=== PATIENT | female | born 1960 | race African-American/Black ===

== ENCOUNTER 2017-05-30 12:01 | Emergency (ER) | payer BC ==
[~2017-05-30] VITALS: Ht 167.6 cm; Wt 68.0 kg
[~2017-05-30 12:01] MED LIST: CHOL100046 PO; MECL25TA3 PO; OMEP20CA4 PO; ROSU10TA PO; VERA180C2 PO
[2017-05-30 12:10] VITALS: BP 129/63
== END 2017-05-30 19:57 | disposition left against medical advice (07) ==
LOC: ER 13:37
DX: R42 Dizziness and giddiness (principal); R06.02 Shortness of breath; I10 Essential (primary) hypertension; E78.00 Pure hypercholesterolemia, unspecified; F17.210 Nicotine dependence, cigarettes, uncomplicated; Z88.5 Allergy status to narcotic agent; Z53.21 Procedure and treatment not carried out due to patient leaving prior to being seen by health care provider

== ENCOUNTER 2017-07-18 11:25 | Emergency (ER) | payer BC ==
[~2017-07-18] VITALS: Ht 167.6 cm; Wt 68.0 kg
[2017-07-18] MEDS ORDERED: FAMOTIDINE 20MG/2ML VIAL IV STA (12:17)
[2017-07-18] MEDS ORDERED: ONDANSETRON HCL 4MG/2ML VIAL IV STA (12:17)
[2017-07-18] MEDS ORDERED: SODIUM CHLORIDE 0.9% 1,000 ML IV ONE (12:17)
[2017-07-18 12:51] LABS: BASOPHILS % 0.2 % (0.0-2.0); EOSINOPHILS % 1.1 % (0.0-5.0); HEMATOCRIT. 45.5 % (36.0-48.0); HEMOGLOBIN. 15.6 g/dL (12.0-16.0); MEAN CORPUSCULAR HEMOGLOBIN 30.6 pg (28.0-32.0); MEAN CORPUSCULAR VOLUME 89.3 fL (81.0-99.0); MEAN PLATELET VOLUME 9.3 fl (7.4-10.4); MONOCYTES % 8.6 % (2.0-8.0); NEUTROPHILS % 44.1 % (40.0-76.0); PLATELET 291 x1000/uL (130-400)
[2017-07-18 12:56] LABS: PARTIAL THROMBOPLASTIN TIME 29.2 sec (23.4-31.0); PROTHROMBIN TIME 10.7 sec (9.4-11.6)
[2017-07-18 13:00] LABS: CARBON DIOXIDE 28 mEq/L (21-32); CHLORIDE 108 mEq/L (98-107)
[2017-07-18 13:03] LABS: CLARITY URINE CLEAR (CLEAR); COLOR URINE YELLOW (YELLOW); GLUCOSE URINE NEGATIVE (NEGATIVE); KETONES URINE NEGATIVE (NEGATIVE); LEUKOCYTE ESTERASE URINE NEGATIVE (NEGATIVE); NITRITE URINE NEGATIVE (NEGATIVE); OCCULT BLOOD URINE NEGATIVE (NEGATIVE); PH URINE 6.5 (4.5-8.0); PROTEIN URINE NEGATIVE (NEGATIVE); SPECIFIC GRAVITY URINE 1.007 (1.005-1.030); UROBILINOGEN URINE 0.2 E.U./dL (0.2-1.0)
[2017-07-18 13:05] LABS: CREATINE KINASE 56 IU/L (26-192); CREATINE KINASE MB FRACTION < 0.5 ng/mL (0.5-3.6); TROPONIN I < 0.02 ng/mL (0.00-0.04)
[2017-07-18 14:41] VITALS: BP 140/58
== END 2017-07-18 14:43 | disposition home or self-care (01) ==
LOC: ER 12:25
DX: R10.12 Left upper quadrant pain (principal); I10 Essential (primary) hypertension; R11.0 Nausea; E87.8 Other disorders of electrolyte and fluid balance, not elsewhere classified; E78.00 Pure hypercholesterolemia, unspecified; F17.210 Nicotine dependence, cigarettes, uncomplicated; Z87.19 Personal history of other diseases of the digestive system
CPT/HCPCS: 36415; 74010; 80053; 81003; 82550; 82553; 83690; 84484; 85025; 85610; 85730; 93005; 96361; 96374; 96375; 99285; J2405; J3490; J7030; Z7610

== ENCOUNTER 2017-11-29 15:34 | Emergency (ER) | payer BC ==
[~2017-11-29] VITALS: Ht 170.2 cm; Wt 67.0 kg
[2017-11-29] MEDS ORDERED: ONDANSETRON 4MG ODT PO STA (18:12)
[2017-11-29] MEDS ORDERED: TRAMADOL 50MG TABLET PO ONE (18:15)
[2017-11-29 19:44] LABS: BASOPHILS % 0.6 % (0.0-2.0); EOSINOPHILS % 1.3 % (0.0-5.0); HEMATOCRIT. 44.1 % (36.0-48.0); MEAN CORPUSCULAR HEMOGLOBIN 31.2 pg (28.0-32.0); MEAN CORPUSCULAR VOLUME 91.7 fL (81.0-99.0); MEAN PLATELET VOLUME 9.9 fl (7.4-10.4); MONOCYTES % 6.9 % (2.0-8.0); NEUTROPHILS % 36.2 % (40.0-76.0); PLATELET 303 x1000/uL (130-400)
[2017-11-29 19:45] LABS: INR 1.1
[2017-11-29 19:54] LABS: CARBON DIOXIDE 27 mEq/L (21-32); CHLORIDE 105 mEq/L (98-107)
[2017-11-29 21:09] LABS: CLARITY URINE CLEAR (CLEAR); COLOR URINE YELLOW (YELLOW); KETONES URINE NEGATIVE (NEGATIVE); LEUKOCYTE ESTERASE URINE TRACE (NEGATIVE); NITRITE URINE NEGATIVE (NEGATIVE); OCCULT BLOOD URINE NEGATIVE (NEGATIVE); PROTEIN URINE NEGATIVE (NEGATIVE); UROBILINOGEN URINE 0.2 E.U./dL (0.2-1.0)
[2017-11-29 21:15] VITALS: BP 118/56
== END 2017-11-29 21:15 | disposition home or self-care (01) ==
LOC: ER 15:52
DX: R10.13 Epigastric pain (principal); R11.0 Nausea; I10 Essential (primary) hypertension; E78.00 Pure hypercholesterolemia, unspecified; D86.9 Sarcoidosis, unspecified; F17.200 Nicotine dependence, unspecified, uncomplicated; Z88.5 Allergy status to narcotic agent; Z98.890 Other specified postprocedural states; Z87.19 Personal history of other diseases of the digestive system
CPT/HCPCS: 36415; 71045; 76705; 80053; 81001; 83690; 85025; 85610; 99285; Q0162

== ENCOUNTER 2017-12-03 21:45 | Emergency (ER) | payer BC ==
[~2017-12-03] VITALS: Ht 170.2 cm; Wt 67.0 kg
[2017-12-03 21:55] VITALS: BP 144/53
== END 2017-12-04 03:40 | disposition left against medical advice (07) ==
LOC: ER 22:24
DX: R10.9 Unspecified abdominal pain (principal); Z53.21 Procedure and treatment not carried out due to patient leaving prior to being seen by health care provider

== ENCOUNTER 2018-05-29 13:55 | Emergency (ER) | payer BC | END 2018-05-29 16:21 | disposition left against medical advice (07) | LOC: ER 13:55 | DX: R53.1 Weakness (principal); R20.0 Anesthesia of skin; Z53.21 Procedure and treatment not carried out due to patient leaving prior to being seen by health care provider ==

== ENCOUNTER 2020-01-21 20:39 | Emergency (ER) | payer BC ==
[~2020-01-21 20:39] MED LIST changes: +CRES10 PO; -ROSU10TA PO
== END 2020-01-22 03:00 | disposition left against medical advice (07) ==
LOC: ER 20:39
DX: S49.91XA Unspecified injury of right shoulder and upper arm, initial encounter (principal); Z53.21 Procedure and treatment not carried out due to patient leaving prior to being seen by health care provider; X58.XXXA Exposure to other specified factors, initial encounter; Y93.89 Activity, other specified; Y92.89 Other specified places as the place of occurrence of the external cause; Y99.8 Other external cause status

== ENCOUNTER 2020-05-30 15:21 | Emergency (ER) | payer BC ==
[~2020-05-30] VITALS: Ht 170.2 cm; Wt 67.7 kg
[2020-05-30 15:54] VITALS: BP 118/76
[2020-05-30] MEDS ORDERED: ONDANSETRON 4MG ODT PO ONE (20:00)
[2020-05-30] MEDS ORDERED: KETOROLAC 60MG/2ML VIAL IM ONE (20:00)
[2020-05-30 20:32] LABS: BASOPHILS % 0.9 % (0.0-2.0); CHLORIDE 107 mEq/L (98-107); EOSINOPHILS % 0.6 % (0.0-5.0); HEMOGLOBIN. 15.8 g/dL (12.0-16.0); LYMPHOCYTES % 35.6 % (20.0-50.0); MEAN CORPUSCULAR HEMOGLOBIN 31.6 pg (28.0-32.0); MEAN CORPUSCULAR VOLUME 91.9 fL (81.0-99.0); MEAN PLATELET VOLUME 9.3 fl (7.4-10.4); MONOCYTES % 8.6 % (2.0-8.0); NEUTROPHILS % 54.3 % (40.0-76.0); PLATELET 322 x1000/uL (130-400); RED CELL DISTRIBUTION WIDTH 13.8 % (11.6-14.6)
[2020-05-30 20:39] LABS: PROTHROMBIN TIME 10.9 sec (9.6-11.0)
[2020-05-30 21:13] LABS: CLARITY URINE CLOUDY (CLEAR); COLOR URINE YELLOW (YELLOW); KETONES URINE 1+ (NEGATIVE); LEUKOCYTE ESTERASE URINE 1+ (NEGATIVE); NITRITE URINE NEGATIVE (NEGATIVE); OCCULT BLOOD URINE NEGATIVE (NEGATIVE); PROTEIN URINE TRACE (NEGATIVE); SPECIFIC GRAVITY URINE 1.024 (1.005-1.030)
== END 2020-05-30 21:37 | disposition home or self-care (01) ==
LOC: ER 15:21
DX: N39.0 Urinary tract infection, site not specified (principal); E78.00 Pure hypercholesterolemia, unspecified; I10 Essential (primary) hypertension; Z98.890 Other specified postprocedural states
CPT/HCPCS: 36415; 80053; 81003; 83690; 85025; 85610; 96372; 99283; J1885; Q0162

== ENCOUNTER 2020-07-07 11:24 | Inpatient (IN) | payer BC ==
[~2020-07-07] VITALS: Ht 170.2 cm; Wt 62.6 kg
[2020-07-07] MEDS ORDERED: NITROGLYCERIN 0.4MG TABLET SL SL PRN (12:15)
[2020-07-07] MEDS ORDERED: ASPIRIN 81MG TABLET PO ONE (12:15)
[2020-07-07 12:49] LABS: BASOPHILS % 1.3 % (0.0-2.0); EOSINOPHILS % 0.7 % (0.0-5.0); HEMATOCRIT. 44.3 % (36.0-48.0); HEMOGLOBIN. 15.3 g/dL (12.0-16.0); LYMPHOCYTES % 42.4 % (20.0-50.0); MEAN CORPUSCULAR HEMOGLOBIN 31.7 pg (28.0-32.0); MEAN CORPUSCULAR VOLUME 91.7 fL (81.0-99.0); MEAN PLATELET VOLUME 9.2 fl (7.4-10.4); MONOCYTES % 8.6 % (2.0-8.0); PLATELET 302 x1000/uL (130-400); RED BLOOD CELL COUNT 4.83 mill/uL (4.2-5.4); RED CELL DISTRIBUTION WIDTH 14.1 % (11.6-14.6)
[2020-07-07 12:52] LABS: CHLORIDE 108 mEq/L (98-107)
[2020-07-07 13:04] LABS: D-DIMER 0.41 mg/L FEU (<0.50); PARTIAL THROMBOPLASTIN TIME 28.6 sec (23.4-31.0); PROTHROMBIN TIME 10.5 sec (9.6-11.0)
[2020-07-08] VITALS: BP 137/71
[2020-07-08] MEDS: HYDROCODONE/ACETAMINOPHEN 5/325MG TABLET PO PRN ×2 (01:32→12:25)
[2020-07-08 04:00] VITALS: BP 122/53
[2020-07-08 06:21] LABS: BASOPHILS % 0.9 % (0.0-2.0); EOSINOPHILS % 1.5 % (0.0-5.0); HEMOGLOBIN. 14.6 g/dL (12.0-16.0); LYMPHOCYTES % 49.4 % (20.0-50.0); MEAN CORPUSCULAR HEMOGLOBIN 31.2 pg (28.0-32.0); MEAN CORPUSCULAR VOLUME 91.9 fL (81.0-99.0); MEAN PLATELET VOLUME 10.1 fl (7.4-10.4); MONOCYTES % 9.7 % (2.0-8.0); NEUTROPHILS % 38.5 % (40.0-76.0); PLATELET 286 x1000/uL (130-400); RED BLOOD CELL COUNT 4.67 mill/uL (4.2-5.4)
[2020-07-08 06:35] LABS: CHLORIDE 108 mEq/L (98-107)
[2020-07-08] MEDS: PANTOPRAZOLE 40MG DR TABLET PO SCH (06:49)
[2020-07-08 07:03] LABS: CREATINE KINASE 36 IU/L (26-192); HDL CHOLESTEROL 52 mg/dL (40-59)
[2020-07-08 07:04] LABS: LDL CHOLESTEROL 108 mg/dL (5-100)
[2020-07-08 07:09] LABS: CREATINE KINASE MB FRACTION < 1.0 ng/mL (0.5-3.6)
[2020-07-08 08:01] VITALS: BP 121/56
[2020-07-08] MEDS: ENOXAPARIN 40MG/0.4ML SYR SUBCUT SCH (09:20)
[2020-07-08] MEDS: ASPIRIN 81MG TABLET PO SCH (09:20)
[2020-07-08] MEDS: METOPROLOL TARTRATE 50MG TABLET PO SCH ×2 (09:20→21:00)
[2020-07-08 12:00] VITALS: BP 101/50
[2020-07-08] MEDS ORDERED: PNEUMOCOCCAL 23-VAL P-SAC VAC 0.5 ML IM ONE (12:00)
[2020-07-08] MEDS ORDERED: REGADENOSON 0.4 MG/5 ML IV NR (15:30)
[2020-07-08 16:00] VITALS: BP 111/43
[2020-07-08 17:13] LABS: CLARITY URINE CLOUDY (CLEAR); COLOR URINE YELLOW (YELLOW); KETONES URINE TRACE (NEGATIVE); LEUKOCYTE ESTERASE URINE 1+ (NEGATIVE); NITRITE URINE NEGATIVE (NEGATIVE); OCCULT BLOOD URINE NEGATIVE (NEGATIVE); PROTEIN URINE NEGATIVE (NEGATIVE); SPECIFIC GRAVITY URINE 1.022 (1.005-1.030); UROBILINOGEN URINE 0.2 E.U./dL (0.2-1.0)
[2020-07-08 17:31] LABS: *AMPHETAMINES SCREEN URINE NEGATIVE (NEGATIVE); *BARBITURATES SCREEN URINE NEGATIVE (NEGATIVE); *BENZODIAZEPINES SCREEN URINE NEGATIVE (NEGATIVE); *COCAINE SCREEN URINE NEGATIVE (NEGATIVE); METHADONE URINE SCREEN NEGATIVE (NEGATIVE); OPIATES URINE SCREEN PRESUMTIVE POSITIVE (NEGATIVE)
[2020-07-08 17:32] LABS: CANNABINOID URINE SCREEN NEGATIVE (NEGATIVE); PHENCYCLIDINE URINE SCREEN NEGATIVE (NEGATIVE)
[2020-07-08] MEDS ORDERED: ACETAMINOPHEN 325MG TABLET PO PRN (19:00)
[2020-07-08] MEDS ORDERED: ACETAMINOPHEN 650MG SUPP PR PRN (19:00)
[2020-07-08] MEDS ORDERED: BISACODYL 10MG SUPP PR PRN (19:00)
[2020-07-08] MEDS ORDERED: HYDRALAZINE 20MG/ML VIAL IV PRN (19:00)
[2020-07-08] MEDS ORDERED: ONDANSETRON HCL 4MG/2ML INJ IV PRN (19:00)
[2020-07-08] MEDS ORDERED: IPRATROPIUM/ALBUTEROL 0.5-3(2.5)MG/3ML NEB HHN PRN (19:00)
[2020-07-08 20:00] VITALS: BP 107/56
[2020-07-08] MEDS ORDERED: FLUCONAZOLE 200 MG/100ML BAG 100 ML IV SCH (20:00)
[2020-07-08] MEDS ORDERED: LEVOFLOXACIN 500MG PREMIX 100 ML IV SCH (20:00)
[2020-07-08] MEDS ORDERED: LACTULOSE 20G/30ML UDC PO PRN (21:00)
[2020-07-08] MEDS: DEXT 5%/0.45% NACL 1000ML 1,000 ML IV SCH (21:22)
[2020-07-09] VITALS: BP 94/45
[2020-07-09 03:59] VITALS: BP 119/70
[2020-07-09] MEDS: PANTOPRAZOLE 40MG DR TABLET PO SCH (05:44)
[2020-07-09 06:51] LABS: BASOPHILS % 0.8 % (0.0-2.0); EOSINOPHILS % 2.2 % (0.0-5.0); HEMATOCRIT. 42.8 % (36.0-48.0); HEMOGLOBIN. 14.3 g/dL (12.0-16.0); LYMPHOCYTES % 48.1 % (20.0-50.0); MEAN CORPUSCULAR VOLUME 92.8 fL (81.0-99.0); MEAN PLATELET VOLUME 10.1 fl (7.4-10.4); MONOCYTES % 9.3 % (2.0-8.0); NEUTROPHILS % 39.6 % (40.0-76.0); PLATELET 297 x1000/uL (130-400); RED BLOOD CELL COUNT 4.61 mill/uL (4.2-5.4); RED CELL DISTRIBUTION WIDTH 13.7 % (11.6-14.6)
[2020-07-09 07:51] LABS: CHLORIDE 106 mEq/L (98-107)
[2020-07-09 08:00] VITALS: BP 128/52
[2020-07-09] MEDS: ASPIRIN 81MG TABLET PO SCH (08:58)
[2020-07-09] MEDS: ENOXAPARIN 40MG/0.4ML SYR SUBCUT SCH (08:58)
[2020-07-09] MEDS: METOPROLOL TARTRATE 50MG TABLET PO SCH (09:00)
[2020-07-09 12:00] VITALS: BP 122/55
[2020-07-09] MEDS: DEXT 5%/0.45% NACL 1000ML 1,000 ML IV SCH (12:27)
[2020-07-09] MEDS: HYDROCODONE/ACETAMINOPHEN 5/325MG TABLET PO PRN (12:27)
[2020-07-09] MEDS ORDERED: REGADENOSON 0.4 MG/5 ML IV ONE (13:46)
[2020-07-09 16:00] VITALS: BP 121/61
[2020-07-09] MEDS ORDERED: GABA-529 MT (16:11)
[2020-07-09] MEDS ORDERED: LEVO500T2 MT (16:11)
[2020-07-09] MEDS ORDERED: ASPI-1158 MT (16:11)
[2020-07-09 20:07] VITALS: BP 121/61
== END 2020-07-09 20:30 | disposition home or self-care (01) | DRG 690 ==
LOC: ER 11:24 → 8WST 16:28 → EDBEDREQ 16:34 → ENRESERV 20:54
PROVIDERS: ADMIT Internal Medicine; ATTEND Internal Medicine
DX: N39.0 Urinary tract infection, site not specified (principal); K21.9 Gastro-esophageal reflux disease without esophagitis; M47.812 Spondylosis without myelopathy or radiculopathy, cervical region; E87.6 Hypokalemia; I10 Essential (primary) hypertension; E86.0 Dehydration; E78.00 Pure hypercholesterolemia, unspecified; R07.89 Other chest pain; F17.200 Nicotine dependence, unspecified, uncomplicated; E78.5 Hyperlipidemia, unspecified; Z79.899 Other long term (current) drug therapy; Z88.6 Allergy status to analgesic agent
CPT/HCPCS: 36415; 71045; 78452; 80048; 80053; 80061; 80305; 81003; 82550; 82553; 83036; 83880; 84484; 85025; 85379; 93005; 93017; 93306; 93970; 99285; A9500; J1450; J1650; J1956; J2785